=== PATIENT | female | born 1995 | race Hispanic/Latino ===

== ENCOUNTER 2018-03-08 15:15 | Outpatient (CLI) | payer SELFPAY ==
[2018-03-08 15:48] VITALS: BMI 34.9
[2018-03-08 15:52] LABS: Color, Urine Yellow (Yellow); Glucose, Dipstick Normal (Normal); Ketone-Dipstick Negative (Negative); Leukocyte Esterase-Dipstick Negative /ul (Negative); Nitrite-Dipstick Negative (Negative); Occult Blood-Urine 10 /ul (Negative); Protein-Dipstick Negative (Negative); Specific Gravity, Urine 1.025 (1.002-1.030); Urine Bilirubin Dipstick Negative (Negative); Urine Clarity Sl. Cloudy (Clear); Urine Urobilinogen Normal (Normal)
[2018-03-08 16:01] LABS: Bacteria 1+ /hpf (None Seen); Fine Granular Cast- Urine 0 SEEN /lpf (0-5); Hyaline Cast 0-5 SEEN /lpf (0-5); Mucous, Urine RARE /hpf (<or=2+)
[2018-03-08 16:02] LABS: Red Blood Cells-Urine 0-5 SEEN /hpf (0-5); Squamous Epithelial Cells - UA 0-5 SEEN /hpf (5-10); White Blood Cells 0-5 SEEN /hpf (0-5)
[2018-03-08 16:17] LABS: ROM Internal Control Test YES-OK TO RESULT pt. (Internal QC); ROM Patient Test Negative (Negative)
--- NOTE | 2018-03-08 17:32 | OB.TRI.NOTE ---
History of Present Illness Date of Service: 03/08/18 Was patient seen by the physician?: Yes Reason For Visit: R/O LABOR Date of Service: 03/08/18 Final CANELO: 04/14/18 Final CANELO Source: US <20 weeks Gestational age: 34 Weeks and 5 Days History of Present Illness: Patient presents reporting increased vaginal discharge, possible PPROM and intermittent lower abdominal cramping. Patient is German-speaking but understands some Tajik. Per conversation with this provider in German, patient has been having pain and burning sensation with urination. Patient reports also bilateral flank and lower back pain. Generalized pain noted by patient over lower abdomen when it is palpated though no palpable ctx noted. Home Medications Medication Instructions Recorded Vits [Prenatabs FA] 1 tablet PO DAILY 07/20/15 Progesterone QWEEK 12/22/17 Cephalexin [Keflex] 250 mg PO Q6 #28 cap 03/08/18 Allergies No Known Allergies Allergy (Verified 03/08/18 15:50) - Pertinent Past Medical History Pertinent Past Medical History: Hx of PTB x 2 secondary to cervical incompetence, cerclage placed with first at 19 weeks and patient had 23 week PTB with subsequent demise. Next a cerclage was placed and patient had delivery at 32 weeks gestation. Hx of depression Physical Exam Vitals: See nursing note for vitals - VSS, afebrile Thin watery scant vaginal discharge with slight odor - BV, yeast, trich culture sent Urinalysis - + blood, +wbcs, +bacteria General: Alert, Oriented x3, No apparent distress Cardiovascular: Regular rate, Regular Rhythm Lungs: Clear to auscultation Abdomen: Soft, Non-Distended, No Hepato-splenomegaly, Gravid, Tender - suprapubic and flank area bilaterally, No hernias noted, Appropriate for Gestational Age Extremities:: No edema Estimated gestational size: Appropriate for gestational size Presentation: Cephalic Cervix Dilation (cm): 0 - cervix soft Station: -2 Effacement (%): 50 NST - FHR Rate Baby A Baseline: 130 Variability:: Moderate Accelerations:: 15 x 15 Decelerations:: None NST Reactive:: Yes, Appropriate for gestational age FHR Category:: Category I Uterine Activity:: Few contractions noted on tocometer, not palpable Impression/Plan 22 y/o @ 34.5 weeks, R/O PTL, Hx of PTB x 2, Presumptive UTI P: 1) Rx Keflex 250mg PO q 6 hours x 7 days 2) Await vaginal culture result - if negative discharge to home with f/u visit with [facility] this week (already scheduled for Saturday) 3) PTL precautions and C teaching reviewed Shena Bower CNM
[2018-03-08] MEDS: Cephalexin 250 MG Capsule PO (18:15)
== END 2018-03-08 18:30 | disposition home or self-care (01) ==
LOC: WPOUT 15:17 → WP 15:19
PROVIDERS: Visit Provider Advanced Practice Midwife
DX: O26.893 Other specified pregnancy related conditions, third trimester (principal); N89.8 Other specified noninflammatory disorders of vagina; Z3A.34 34 weeks gestation of pregnancy; R20.8 Other disturbances of skin sensation; R30.0 Dysuria; M54.5 Low back pain
CPT/HCPCS: 59025; 59050; 81001; 84112; 87210; 99218; G0378

== ENCOUNTER 2018-03-21 19:00 | Outpatient (CLI) | payer SELFPAY ==
[2018-03-21 20:38] VITALS: BMI 35.2
[2018-03-21 20:47] LABS: Mucous, Urine 0 SEEN /hpf (<or=2+); Red Blood Cells-Urine 0 SEEN /hpf (0-5)
[2018-03-21 20:50] LABS: Color, Urine Yellow (Yellow); Glucose, Dipstick Normal (Normal); Ketone-Dipstick 5 mg/dl (Negative); Leukocyte Esterase-Dipstick 25 /ul (Negative); Nitrite-Dipstick Negative (Negative); Occult Blood-Urine 10 /ul (Negative); Protein-Dipstick Negative (Negative); Specific Gravity, Urine 1.025 (1.002-1.030); Urine Bilirubin Dipstick Negative (Negative); Urine Clarity Sl. Cloudy (Clear); Urine Urobilinogen Normal (Normal)
[2018-03-21 21:10] LABS: Bacteria 1+ /hpf (None Seen); Squamous Epithelial Cells - UA 0-5 SEEN /hpf (5-10); White Blood Cells 0-5 SEEN /hpf (0-5)
--- NOTE | 2018-03-21 22:57 | OB.TRI.HP_ITS ---
History of Present Illness Date of Service: 03/21/18 Was patient seen by the physician?: No Reason For Visit: R/O LABOR Date of Service: 03/21/18 Final CANELO: 04/14/18 Final CANELO Source: US <20 weeks Gestational age: 36 Weeks and 4 Days History of Present Illness: Presented to L&D with abdominal pain and contractions. Cerclage out on 03/18/18 and cervix was 1cm per patient. Patient denies any vaginal bleeding, leakage of fluid or time able contractions. Just intermittent abdominal pain. Home Medications Medication Instructions Recorded Vits [Prenatabs FA] 1 tablet PO DAILY 07/20/15 Progesterone QWEEK 12/22/17 Allergies No Known Allergies Allergy (Verified 03/21/18 20:39) Physical Exam Cervix Dilation (cm): 1 Station: -3 Effacement (%): 20 NST - FHR Rate Baby A Variability:: Moderate Accelerations:: 15 x 15 Decelerations:: Variable NST Reactive:: Yes FHR Category:: Category II Uterine Activity:: Irregular irritability Impression/Plan A: False Labor P: 1) PO hydrate 2) U/A negative 3) D/C home Ana Schumacher, MSN, POST TRONIC MACHINE OPERATOR, CNM
== END 2018-03-21 22:15 | disposition home or self-care (01) ==
LOC: WPOUT 19:41 → WP 19:43
PROVIDERS: Visit Provider Obstetrics & Gynecology
DX: O47.03 False labor before 37 completed weeks of gestation, third trimester (principal); Z3A.36 36 weeks gestation of pregnancy
CPT/HCPCS: 59025; 59050; 81001; 99218; G0378

== ENCOUNTER 2018-03-25 19:44 | Outpatient (CLI) | payer SELFPAY ==
[2018-03-25 20:23] VITALS: BMI 35.9
--- NOTE | 2018-03-26 05:15 | OB.TRI.NOTE ---
History of Present Illness Date of Service: 03/25/18 Was patient seen by the physician?: No Reason For Visit: R/O LABOR Date of Service: 03/25/18 Final CANELO: 04/14/18 Final CANELO Source: US <20 weeks Gestational age: 37 Weeks and 2 Days Home Medications Medication Instructions Recorded Vits [Prenatabs FA] 1 tablet PO DAILY 07/20/15 Allergies No Known Allergies Allergy (Verified 03/21/18 20:39) NST - FHR Rate Baby A Baseline: 130 Variability:: Moderate Accelerations:: 15 x 15 Decelerations:: None NST Reactive:: Yes FHR Category:: Category I Uterine Activity:: irreg ctxs
== END 2018-03-25 22:10 | disposition home or self-care (01) ==
LOC: WPOUT 20:17 → WP 20:18
PROVIDERS: Visit Provider Obstetrics & Gynecology
DX: O47.1 False labor at or after 37 completed weeks of gestation (principal); Z3A.37 37 weeks gestation of pregnancy
CPT/HCPCS: 59025; 59050; 99218; G0378

== ENCOUNTER 2018-03-27 18:00 | Outpatient (CLI) | payer SELFPAY ==
[2018-03-27 23:32] VITALS: BMI 35.7
--- NOTE | 2018-04-05 03:01 | OB.TRI.NOTE ---
History of Present Illness Date of Service: 03/27/18 Was patient seen by the physician?: No Reason For Visit: R/O LABOR Gestational age: 37.5 Home Medications Medication Instructions Recorded Vits [Prenatabs FA] 1 tablet PO DAILY 07/20/15 Allergies No Known Allergies Allergy (Verified 04/04/18 20:32) NST - FHR Rate Baby A Baseline: 135 Variability:: Moderate Decelerations:: Variable - possible prolonged decel NST Reactive:: Yes Uterine Activity:: irrregular Impression/Plan Reactive NST but possible prolonged decels Patient called back for additional monitoring
== END 2018-03-27 20:55 | disposition home or self-care (01) ==
LOC: WPOUT 18:33 → WP 18:34
PROVIDERS: Visit Provider Obstetrics & Gynecology
DX: O76 Abnormality in fetal heart rate and rhythm complicating labor and delivery (principal); Z3A.37 37 weeks gestation of pregnancy
CPT/HCPCS: 59025; 59050; 99218; G0378

== ENCOUNTER 2018-03-28 18:00 | Outpatient (CLI) | payer SELFPAY ==
--- NOTE | 2018-03-28 18:05 | US_ITS ---
STUDY: OBSTETRICAL ULTRASOUND - BIOPHYSICAL PROFILE REASON FOR EXAM: Female, 22 years old. BPP AND GROWTH LMP: PRIOR ULTRASOUND: US Uterus Oct 14 2017 6:51pm TECHNIQUE: Transabdominal ultrasound evaluation was performed. FINDINGS: There is a single intrauterine fetus. The fetus is in a cephalic presentation. There is demonstrated cardiac activity with a heart rate of 153 bpm. There is a normal amniotic fluid volume. The largest amniotic fluid pocket measures 5.7 cm. The amniotic fluid index (LUTHER) is 9.51 cm. The placenta is posterior in location and is not low lying. There are Grade 3 placental changes. Age by LMP: 37 weeks, 4 days. CANELO by LMP: 5.14.18. age by current US: 37 weeks, 0 days. CANELO by current US: 5.18.18. Gender: Female BIOPHYSICAL PROFILE: Breathing Movements (FBM): 2 Gross Body Movements (GBM): 2 Tone (FT): 2 Amniotic Fluid Volume (AFV): 2 TOTAL SCORE: 8 / 8 US/Biophysical Profile IMPRESSION: Normal biophysical profile of 8/8. There is a single live intrauterine with a heart rate of 153 bpm. age by current US: 37 weeks, 0 days. CANELO by current US: 5.18.18. Electronically Signed: Keegan Correa MD at 19:55 EDT , Service support ,
[2018-03-28 19:14] LABS: Mucous, Urine 0 SEEN /hpf (<or=2+)
[2018-03-28 19:26] LABS: Color, Urine Yellow (Yellow); Glucose, Dipstick Normal (Normal); Ketone-Dipstick Negative (Negative); Leukocyte Esterase-Dipstick Negative /ul (Negative); Nitrite-Dipstick Negative (Negative); Occult Blood-Urine 10 /ul (Negative); Protein-Dipstick Negative (Negative); Specific Gravity, Urine 1.025 (1.002-1.030); Urine Bilirubin Dipstick Negative (Negative); Urine Clarity Sl. Cloudy (Clear); Urine Urobilinogen Normal (Normal)
[2018-03-28 19:38] LABS: White Blood Cells 0-5 SEEN /hpf (0-5)
[2018-03-28 19:39] LABS: Bacteria 1+ /hpf (None Seen); Calcium Oxalate Crystals Ur 1+ /hpf (<or=2+); Red Blood Cells-Urine 0-5 SEEN /hpf (0-5); Squamous Epithelial Cells - UA 0-5 SEEN /hpf (5-10)
[2018-03-28 19:46] LABS: ROM Internal Control Test YES-OK TO RESULT pt. (Internal QC); ROM Patient Test Negative (Negative)
[2018-03-28 20:00] VITALS: BMI 35.4
--- NOTE | 2018-03-29 09:21 | OB.TRI.NOTE ---
History of Present Illness Date of Service: 03/28/18 Was patient seen by the physician?: No Reason For Visit: NST Final CANELO: 04/14/18 Final CANELO Source: US <20 weeks Gestational age: 37 Weeks and 5 Days History of Present Illness: Patient presents to labor and delivery due to being in triage last night and having what appeared to be decelerations on the external monitor. She presents today for reevaluation and biophysical profile. Home Medications Medication Instructions Recorded Vits [Prenatabs FA] 1 tablet PO DAILY 07/20/15 Allergies No Known Allergies Allergy (Verified 03/21/18 20:39) NST - FHR Rate Baby A Baseline: 130 then 115 Variability:: Moderate Accelerations:: 15 x 15 Decelerations:: Variable NST Reactive:: Yes FHR Category:: Category I - for > 20 min before d/c Uterine Activity:: no regular ctxs Impression/Plan 22-year-old 3 para 0201 female with decelerations who presented for biophysical profile and prolonged monitoring. There were a couple of intermittent small variables on the external monitoring. Overall the heart tones are category 1 for the majority of the monitoring time. Category 1 for greater than 20 minutes before discharge. She had a biophysical profile of 10 out of 10. Estimated weight was appropriate amniotic fluid volume was 9.5 cm. She was discharged home with routine instructions she is to follow-up in our office as scheduled or as needed. She is to do kick counts.
== END 2018-03-28 20:30 | disposition home or self-care (01) ==
LOC: WPOUT 18:03 → WP 18:04
PROVIDERS: Visit Provider Obstetrics & Gynecology
DX: O76 Abnormality in fetal heart rate and rhythm complicating labor and delivery (principal); Z3A.37 37 weeks gestation of pregnancy
CPT/HCPCS: 59025; 59050; 76818; 81001; 84112; 99218; G0378

== ENCOUNTER 2018-04-01 17:40 | Outpatient (CLI) | payer SELFPAY ==
[2018-04-01 18:04] VITALS: BMI 35.6
--- NOTE | 2018-04-03 13:37 | OB.TRI.NOTE ---
History of Present Illness Date of Service: 04/03/18 Was patient seen by the physician?: No Reason For Visit: contractions Date of Service: 04/01/18 Final CANELO: 04/14/18 Gestational age: 38 1 Home Medications Medication Instructions Recorded Vits [Prenatabs FA] 1 tablet PO DAILY 07/20/15 Allergies No Known Allergies Allergy (Verified 03/21/18 20:39) NST - FHR Rate Baby A Baseline: 130 bpm Variability:: Moderate Accelerations:: 15 x 15 Decelerations:: None NST Reactive:: Yes FHR Category:: Category I Uterine Activity:: irritability Impression/Plan 22-year-old high-risk multigravida 22-year-old high-risk multigravida with false labor 3 previous delivery
== END 2018-04-01 19:20 | disposition home or self-care (01) ==
LOC: WPOUT 17:50 → WP 17:51
PROVIDERS: Visit Provider Obstetrics & Gynecology
DX: O47.1 False labor at or after 37 completed weeks of gestation (principal); Z3A.38 38 weeks gestation of pregnancy; O09.213 Supervision of pregnancy with history of pre-term labor, third trimester
CPT/HCPCS: 59025; 59050; 99218; G0378

== ENCOUNTER 2018-04-04 20:04 | Inpatient (IN) | payer SELFPAY ==
[2018-04-04] MEDS: Lactated Ringers 1,000 ML 50 ML IV ×2 (20:25→21:29)
[2018-04-04 20:31] VITALS: BMI 35.4
--- NOTE | 2018-04-04 20:32 | NURSING ---
pt too painful to step on scale on arrival per engineering secretary
[2018-04-04 20:58] LABS: Hematocrit 36.1 % (37-47); Hemoglobin 11.9 g/dl (12.0-15.0); Mean Corpuscular Hgb 28.1 pg (27.0-32.0); Mean Corpuscular Volume 85.3 fL (81-99); Mean Platelet Vol. 9.6 fl (6.2-12.0); Platelet Count 315 K/mm3 (150-450); RBC Distribution Width CV 13.7 % (11.6-14.6); RBC Distribution Width SD 42.5 fl (35.1-43.9); Red Blood Count 4.23 M/mm3 (4.2-5.4); White Blood Count 9.9 K/mm3 (4.4-11.0)
[2018-04-04 21:05] LABS: Scan Indicated on CBC? Y/N NO
[2018-04-05] MEDS: Lactated Ringers 1,000 ML 50 ML IV (03:07)
--- NOTE | 2018-04-05 03:09 | PCM.HP.OB ---
History Date of Admission: 04/04/18 Final CANELO: 04/14/18 Gestational age: 38 Weeks and 5 Days History of this : GBS negative Cerclage placement - h/o cervical incompetence Progesterone injections Pertinent Past Medical History: H/o PP depression Allergies No Known Allergies Allergy (Verified 04/04/18 20:32) Current Medications Acetaminophen (Tylenol) 325 - 650 mg PO Q4H PRN PRN PRN Reason: PAIN OR FEVER >100.4F Al Hydroxide/Mg Hydroxide (Mylanta Ii) 15 - 30 ml PO Q4H PRN PRN PRN Reason: INDIGESTION Citric Acid/Sodium Citrate (Bicitra) 30 ml PO UD PRN Lactated Ringer's () 1,000 mls @ 50 mls/hr IV .Q20H [facility] Last Admin: 04/05/18 03:07 Dose: 50 mls/hr Nalbuphine HCl (Nubain) 5 - 10 mg IV Q3H PRN PRN PRN Reason: PAIN (4-10/10) Ondansetron HCl (Zofran) 4 mg IV Q8H PRN PRN PRN Reason: NAUSEA Promethazine HCl (Phenergan) 6.25 - 12.5 mg IV Q4H PRN PRN; Protocol PRN Reason: IF NAUSEA PERSISTS Sodium Chloride () 5 - 15 ml IV UD [facility] Last Admin: 04/04/18 21:18 Dose: Not Given Smoking Status: Never smoker Alcohol: None Drug Use: none Number of Fetus(es): 1 Physical Exam General: Alert, Oriented x3 Abdomen: Soft, Non Tender, Non-Distended, Gravid Estimated gestational size: Appropriate for gestational size Presentation: Cephalic Cervix Dilation (cm): 9 Station: 0 Effacement (%): 100 Assessment/Plan 22yo female in labor AROM clear amniotic fluid GBS negative Pain - comfortable with epidural EFW less than 4500g - patient with adequate pelvis Routine care
--- NOTE | 2018-04-05 03:16 | HP.PCM_ITS ---
History Date of Admission: 04/04/18 Final CANELO: 04/14/18 Gestational age: 38 Weeks and 5 Days History of this : GBS negative Cerclage placement - h/o cervical incompetence Progesterone injections Pertinent Past Medical History: H/o PP depression Allergies No Known Allergies Allergy (Verified 04/04/18 20:32) Current Medications Acetaminophen (Tylenol) 325 - 650 mg PO Q4H PRN PRN PRN Reason: PAIN OR FEVER >100.4F Al Hydroxide/Mg Hydroxide (Mylanta Ii) 15 - 30 ml PO Q4H PRN PRN PRN Reason: INDIGESTION Citric Acid/Sodium Citrate (Bicitra) 30 ml PO UD PRN Lactated Ringer's () 1,000 mls @ 50 mls/hr IV .Q20H [facility] Last Admin: 04/05/18 03:07 Dose: 50 mls/hr Nalbuphine HCl (Nubain) 5 - 10 mg IV Q3H PRN PRN PRN Reason: PAIN (4-10/10) Ondansetron HCl (Zofran) 4 mg IV Q8H PRN PRN PRN Reason: NAUSEA Promethazine HCl (Phenergan) 6.25 - 12.5 mg IV Q4H PRN PRN; Protocol PRN Reason: IF NAUSEA PERSISTS Sodium Chloride () 5 - 15 ml IV UD [facility] Last Admin: 04/04/18 21:18 Dose: Not Given Smoking Status: Never smoker Alcohol: None Drug Use: none Number of Fetus(es): 1 Physical Exam General: Alert, Oriented x3 Abdomen: Soft, Non Tender, Non-Distended, Gravid Estimated gestational size: Appropriate for gestational size Presentation: Cephalic Cervix Dilation (cm): 9 Station: 0 Effacement (%): 100 Assessment/Plan 22yo female in labor AROM clear amniotic fluid GBS negative Pain - comfortable with epidural EFW less than 4500g - patient with adequate pelvis Routine care
[2018-04-05] MEDS: Oxytocin 30 units/NS 500 ml 30 UNITS/500 ML IV.SOLN 334 UNITS IV (03:48)
--- NOTE | 2018-04-05 03:53 | PCM.OB.VAG ---
Vaginal Delivery Maternal Presentation: Active Labor Amniotic Membrane Rupture Type: Artificial Amniotic Fluid Description: Clear - with terminal meconium Final CANELO: 04/14/18 Gestational age: 38 Weeks and 5 Days Date of Procedure: 04/05/18 Pre-Operative Diagnosis: Labor Post-Operative Diagnosis: Labor Surgery/ Procedure Performed: Spontaneous Vaginal Delivery Type of Anesthesia: Epidural Description of Procedure: patient prepped & draped when c/c/+2. she pushed & delivered head. gentle traction placed on head to allow delivery of anterior & posterior shoulders. no excess traction placed on head. body delivered & placed on maternal abdomen. 3vc clamped & cut in delayed fashion. placenta delivered with gentle traction & good uterine tone obtained. Presentation: RAYSHAWN Placental Delivery Description: Expressed Placenta Disposition: [facility] Cord Vessel Description: 3 Vessels Cord Entanglement: None Estimated Blood Loss: 200ml A gender: Female (1 minute): 9 (5 minute): 9 Episiotomy Description: None Laceration: None Medications given after delivery: IV Pitocin Complications: None
[2018-04-05] MEDS: Oxytocin 30 units/NS 500 ml 30 UNITS/500 ML IV.SOLN 167 UNITS IV (04:15)
[2018-04-05 06:00] VITALS: BP 109/55; PULSE 97; RESP 17; TEMP 37.1
[2018-04-05 08:15] VITALS: BP 105/56; PULSE 104; RESP 18; TEMP 36.3
--- NOTE | 2018-04-05 10:37 | CASEMGMT ---
SW received referral for resources for patient who is Polish speaking only. This SW does not have any resources, but did talk with WP PARVEEN who has some resources. She said if it is okay she can mail patient the resources on Saturday if patient is not here on Saturday. PARVEEN spoke with RN who felt this would be fine. SW also notified extension service specialist in charge of plan. Plan: WP SAINI to follow up on Saturday if patient is here and if not she will mail resources. Mindi SOLANO MSW
[2018-04-05] MEDS: Prenatal Vits Tablet 1 TABLET PO (11:06)
[2018-04-05 12:00] VITALS: BP 122/81; PULSE 109; RESP 18; TEMP 36.6
[2018-04-05] MEDS: Ibuprofen 600 MG Tablet PO ×2 (13:26→19:54)
--- NOTE | 2018-04-05 17:03 | NURSING ---
Print Production Manager Casey, #[id number] used for bath demo and teaching. Pt verbalized understanding. [place] [employer] book given to pt with instructions to read.
[2018-04-05 17:06] VITALS: BP 115/67; PULSE 91; RESP 16; TEMP 36.4
[2018-04-05 20:00] VITALS: BP 109/61; PULSE 98; RESP 16; TEMP 37.4
[2018-04-06 02:00] VITALS: BP 93/44; PULSE 74; RESP 16; TEMP 37.2
[2018-04-06] MEDS: Hydrocortisone 2.5% Crm 1 APPLIC TOPICAL (04:20)
[2018-04-06] MEDS: Ibuprofen 600 MG Tablet PO ×2 (04:21→14:06)
--- NOTE | 2018-04-06 04:36 | PN.OBGYN_ITS ---
Subjective: Pain controlled - Physical Exam General: Alert, Oriented x3 Abdomen: Soft - ff mid & below umb, Non Tender, Non-Distended Extremities: No Calf Tenderness Vital Signs Temp Pulse Resp BP 98.9 F 74 16 93/44 L 04/06/18 02:00 04/06/18 02:00 04/06/18 02:00 04/06/18 02:00 Oxygen Delivery Method Room Air Weight: 194 lb Body Mass Index (BMI) 35.4 Intake and Output for Last 24 Hours 04/04/18 04/05/18 04/06/18 23:59 23:59 23:59 Output Total 700 / 700 Balance -700 / -700 Medical Necessity - Tobacco Use Smoking Status: Never smoker Assessment/Plan 22yo female PPD#1 Routine care control - will give depo prior to discharge & then insert mirena IUD at 6- 10 weeks PP
--- NOTE | 2018-04-06 04:38 | PCM.DCVAG ---
Discharge Diet: No Restrictions Discharge Activity: May Drive, May Shower May resume sexual activity in: 6 weeks Weight Bearing Status: Weight bearing as tolerated Additional Instructions: If you experience any of the following, contact your healthcare provider. Bleeding that soaks a pad every hour for 2 hours Fever 100.4 or higher Unrelieved incision or abdominal pain Swelling, redness, discharge or bleeding from your incision or episiotomy site Your incision begins to separate Problems urinating (including inability to urinate or burning while urinating). Visual changes Severe headache Flu-like symptoms Pain or redness in one of both of your breasts Pain, warmth, tenderness or swelling in your legs, especially the calf area Frequent nausea and vomiting Symptoms of depression or anxiety If you experience any of the following, call 911 or go to the nearest Emergency Room. Chest pain Problems breathing Seizure activity Partial or complete paralysis of a body part, slurred speech, weakness or drooping of the face, or a sudden inability to walk or hold your balance Allergies/Adverse Reactions: Allergies No Known Allergies Allergy (Verified 04/04/18 20:32) Medications to take at Discharge Vits [Prenatabs FA ] 1 tablet PO DAILY 07/20/15 Primary Care Physician: Care Physician,No Primary [Primary Care Provider] -
--- NOTE | 2018-04-06 04:39 | DCINST_ITS ---
Discharge Diet: No Restrictions Discharge Activity: May Drive, May Shower May resume sexual activity in: 6 weeks Weight Bearing Status: Weight bearing as tolerated Additional Instructions: If you experience any of the following, contact your healthcare provider. * Bleeding that soaks a pad every hour for 2 hours * Fever 100.4 or higher * Unrelieved incision or abdominal pain * Swelling, redness, discharge or bleeding from your incision or episiotomy site * Your incision begins to separate * Problems urinating (including inability to urinate or burning while urinating) . * Visual changes * Severe headache * Flu-like symptoms * Pain or redness in one of both of your breasts * Pain, warmth, tenderness or swelling in your legs, especially the calf area * Frequent nausea and vomiting * Symptoms of depression or anxiety If you experience any of the following, call 911 or go to the nearest Emergency Room. * Chest pain * Problems breathing * Seizure activity * Partial or complete paralysis of a body part, slurred speech, weakness or drooping of the face, or a sudden inability to walk or hold your balance Allergies/Adverse Reactions: Allergies No Known Allergies Allergy (Verified 04/04/18 20:32) Medications to take at Discharge Vits [Prenatabs FA ] 1 tablet PO DAILY 07/20/15 Primary Care Physician: Care Physician,No Primary [Primary Care Provider] -
[2018-04-06 08:00] VITALS: BP 109/65; PULSE 85; RESP 16; TEMP 36.3
[2018-04-06] MEDS: Prenatal Vits Tablet 1 TABLET PO (09:58)
[2018-04-06] MEDS: Senna/Docusate Sodium 1 Tablet PO (09:58)
[2018-04-06 14:00] VITALS: BP 108/75; PULSE 91; RESP 16; TEMP 36.3
--- NOTE | 2018-04-06 14:53 | NURSING ---
Written teaching info on and care printed from mike and given to pt.
[2018-04-06 20:26] VITALS: BP 124/78; PULSE 78; RESP 18; TEMP 36.9
[2018-04-07 01:43] VITALS: BP 124/80; PULSE 72; RESP 16; TEMP 36.7
[2018-04-07 07:46] VITALS: BP 109/72; PULSE 90; RESP 16; TEMP 36.5
--- NOTE | 2018-04-07 08:58 | PCM.PN.OB ---
Subjective: Doing well per patient and nursing staff. Denies any headaches, visual changes, chest pain, shortness of breath, increased vaginal bleeding or clots, no leg pain. Ambulating and taking PO without difficulty. Voiding and passing flatus. Planning D/C home today. Jhonny Ge here for interpreting. Patient declines interpretive telecommunication services today. - Physical Exam General: Alert, Oriented x3, Cooperative HEENT: Atraumatic, PERRLA, EOMI, Normocephalic Lungs: Clear to auscultation, Normal air movement, No rhonchi, No wheeze Cardiovascular: Regular rate, Regular Rhythm, No murmurs Abdomen: Bowel Sounds Present, Soft, Non Tender Extremities: No edema, - - Mariya's negaive BLE Psych/Mental Status: Normal Affect, Appropriate Vital Signs Temp Pulse Resp BP 97.7 F L 90 16 109/72 04/07/18 07:46 04/07/18 07:46 04/07/18 07:46 04/07/18 07:46 Oxygen Delivery Method Room Air Weight: 194 lb Body Mass Index (BMI) 35.4 Intake and Output for Last 24 Hours 04/05/18 04/06/18 04/07/18 23:59 23:59 23:59 Output Total 700 / 700 Balance -700 / -700 Medical Necessity - Tobacco Use Smoking Status: Never smoker Assessment/Plan A: PPD #2 P: 1) D/C instructions given, planning D/C home today 2) Patient would like Depo injection prior to discharge. Reviewed risks, benefits, MOA, and injection. Mirena insertion at visit. 3) Professional Engineer to see patient prior to discharge 4) D/C home today.
[2018-04-07] MEDS: Prenatal Vits Tablet 1 TABLET PO (09:49)
[2018-04-07] MEDS: MedroxyPROGESTERone 150 MG/ML Syringe IM (09:49)
[2018-04-07] MEDS: Ibuprofen 600 MG Tablet PO (10:04)
--- NOTE | 2018-04-07 12:30 | CASEMGMT ---
Social Work Note - Labor and Delivery Unit Social Work Assessment completed. Refer to documentation below for further details. Date of Referral: 04/05/2018 Time of Referral: 0501 Referred By: Dr. Aguilar Date of Intervention: 04/07/2018 Time of Intervention: 1200 Reason for Referral: Libyan speaking as primary language, interested in WIC and other resources History obtained from: medical record and patient/mother of baby (MOB) Natasha Arizmendi. Used [facility] auto refinisher services for conversation with MOB. Fitness Floor Attendant Sujey, ID# [id number] Household composition: MOB and son Agustín live with MOBs mother, and MOBs sisters ages 19 and 4. MOB reports plan to take Ros Bean to this home. MOB reports home situation is safe and adequate. Patient's parent/guardian status: LANETTE is 20 years old single female born in [place], moving to the [facility] at the age of 18. Father of baby (FOB), age 24 and born in [facility], is Santino Newtono Servando. FOB is the father to all of MOBs children. FOB is currently involved. Children: Nikolay, born [birth year]15 at 23 weeks, at ; Agustín born 07[birth year]-16, and Ros Waller boron 5-18. Medical History: LANETTE is G3, P2 to 3 after delivering Ros. care good, starting at 9 weeks gestation. LANETTE did have a cerclage for part of this . Infant born weighing 6 pounds 12 ounces, with Apgars 9 and 9. Educational Status: MMOB reports complete schooling in [place], equivalent to [employer] or the first year of high school in the [place]. Primary language is Libyan, written and spoken. MOB reports to understand some spoken Afghan. Financial Status: MOB does not currently work. MOB reports is support by MOBs mothers work on the [employer] (where the home is actually located) and then FOB gives about 200 a month baby supplies. nfant Supplies: MOB reports to have a crib, car seat, clothing, some diapers, wipes, and plans to breast feed. Childcare/Caregiver(s): MOB plans to be primary caregiver. Transportation: MOB reports to rely on a maternal aunt for assistance, but reports the aunt charges large amounts of money (between 50-100 dollars) for rides. MOB reports to use the aunt when an Afghan auto refinisher is needed. MOB reports to have a family friend with a license and car, but this person mostly speaks Libyan. The Libyan speaking friend does not charge for rides. Programs/Agencies Involved: MOB reports to have WIC for Agustín, but needs for the new baby. MOB reports lost Medicaid benefits due to MOBs aunt helping MOB, sending all paperwork to the aunts home and the aunt not conveying to MOB what needs to be done for JFS. MOB denies involvement with any other agency, but reports open to resources available. Children Services/Legal Issues: MOB denies past or present legal or children services involvement. Behavioral Health Issues: MOB reports history of depression after son Nikolay . MOB reports did not seek help as was afraid, so just dealt with this on own. MOB denies that has ever thought of suicide as an option; no current thoughts, plans or intent to self-harm or harm others. MOB reports to have worry about children, and this worry has increased since loss of first child. MOB denies any use of alcohol or drugs. MOB denies tobacco use. No drug screens noted in care record or at delivery. Family/Social Stressors: LANETTE is a single mother, although FOB is involved and MOB reports supportive (MOB denies any form of abuse in relationship). care record indicated there was some stress this , with MOB worrying about FOBs faithfulness, though at time of assessment MOB denies any current stressors. MOB and FOB are both primarily Libyan speaking, so this is a barrier to accessing service. Limited support system in the form of Afghan speaking supports. Limited finances, though MOB reports FOB helps as does MOBs mother and sister who works. Support Systems: MOB reports her mother, 19 year old sister, and FOB are good supports to MOB. Depression/Shaken Baby/Safe Sleeping: MOB educated to safe sleeping, importance of setting baby down if feeling overwhelmed or frustrated, and depression risk. Educated MOB to risk for depression, as well as importance of seeking out help and support, attempting to normalize for MOB that this is not a shameful thing or something to hide. Emotional support offered to MOB. ASSESSMENT: MOB attentive to baby during social work visit, holding baby, smiling at and gazing at baby. MOB gentle in care of baby. MOB cried during assessment, when relating stressors, and also when MOB found out that baby needed to go to [facility] for failed hearing screen. MOB voiced to be so worried for her baby, that wants to make sure the baby is seen by the doctor but does not have insurance and does not understand why the insurance exactly lapsed in the first place. MOB shared that recently had to use the [facility] ED for older son, as could not afford the copays at the doctor's office due to loss of insurance. MOB talked about limited support from Afghan speaking aunt who at times serves as an auto refinisher for MOB, and how this person charges large amounts of money for rides. MOB reports that MOB's other who is sister to the aunt is getting frustrated with the cost of rides. MOB appearing receptive to social work visit, talking privately with social security benefits interviewer (as there were visitors present when social security benefits interviewer arrived, including the aunt who appeared irritated by tense facial features). MOB held normal eye contact, smiled at appropriate times, and was talkative. MOB receptive to resources and support offered. MOB voicing thanks for assistance social security benefits interviewer offering today. PLAN: MOB and baby to home today with family support. Social work to continue to assist today in providing resources and support before home going. -CORKY Lilly, COW RIDER
--- NOTE | 2018-04-07 13:30 | CASEMGMT ---
Social Work Note Labor and Delivery Unit Reason for visit: Follow up to assessment, provision of resources and assistance in accessing services Used [facility] phytopathologist services during meeting with MOB, combination of Sujey, ID#[id number] and Josue ID# [id number] 1. Assisted MOB with arranging hearing screening appointment in [place], educating MOB that needs to bring Medicaid card or pay 400 dollars for visit; educated that appointment can be rescheduled if Medicaid card is not sorted out by the appointment date. Appointment set for 04-22-18 at 1230 2. Assisted MOB in calling the [facility] Medicaid line. MOB able to attain Medicaid case number for son Agustín. Case number is [id number] 3. Assisted MOB in calling local [facility] office, to determine when MOB can be seen and what needs to be brought for baby to be added to [facility] case. MOB expressed understanding of what licensed master social worker explained needs to be done. MOB states that can get the family friend to help tomorrow, to get to walk in hours, where there will be filipino interpretation services available. 4. Assisted MOB in calling the [facility] phone line to apply for Medicaid online. Educated MOB as to reason why the medical card was discontinued in the first place. During phone conversation MOB had it noted in the [facility] record to MOBs correct address and that all correspondence needed to be in Israeli. MOB had previously voiced frustration that MOBs aunt was not including MOB in what needed to be done and MOB felt the aunt was withholding information from MOB. Note, prior to completion of phone application, all that had to be done was for MOB to give phone consent for an electronic signature. At this time hospital phone system stopped working and call disconnected. This call had been at least 40 minutes in length at this point. MOB voiced that unable to wait any longer, as it has been hours since licensed master social worker started to work with MOB today, and MOB could not make the ride wait any longer. boom worker educated MOB that next call should be quick, but MOB chose to leave. MOB voiced intent to go to local [facility] to finish application, likely on Saturday when MOBs aunt brings MOB to [facility] for pediatric follow up. 5. Provided MOB list of resources for [facility], writing in both Gabonese and Israeli, so that MOB and MOBs sister (who is 19 and reads Gabonese) can understand what is written. Provided [facility] information. depression information in Israeli, WIC applications in Israeli, Medicaid application in Israeli information on shaken baby in Israeli. MOB reports to be able to read and understand the Israeli language. Verbally educated there is transportation assistance through [employer] as well as can get help from insurance once insurance is approved again. Verbally reviewed options for assistance with diapers if needed. 6. Verified MOBs current address as [address] [place], [place]; phone is [phone]. No other services requested or indicted. MOB voiced thanks for time given today, for listening, and for resources offered. MOB and baby discharging home today. Resources given and reports to have needed supplies for baby at this time. -CRISTIANO Lilly, DRAW PRESS OPERATOR
--- NOTE | 2018-04-07 14:24 | NURSING ---
1045 pt requesting discharge, states her ride is here; PARVEEN Wilson informed that pr. is ready for discharge. Maureen visited with her until 1330. Pt walked to car per her request.
--- NOTE | 2018-04-10 09:55 | CASEMGMT ---
Social Work Note Labor and Delivery Unit [employer] referral made via the [facility]'s secure web based system. -CRISTIANO Lilly, BYPRODUCTS OPERATOR
== END 2018-04-07 13:45 | disposition home or self-care (01) | DRG 775 ==
PROVIDERS: Admitting Provider Obstetrics & Gynecology; Visit Provider Obstetrics & Gynecology
DX: O77.0 Labor and delivery complicated by meconium in amniotic fluid (principal); Z37.0 Single live birth; Z3A.38 38 weeks gestation of pregnancy
CPT/HCPCS: 59025; 59050; 85027; 86850; 86900; 99218; J7120; G0378

== ENCOUNTER 2023-10-17 08:12 | Emergency (ER) | payer OTHER, SELFPAY ==
[2023-10-17 08:14] VITALS: BP 132/88; PULSE 105; RESP 20; TEMP 37.2; O2SAT 99; BMI 35.9
--- NOTE | 2023-10-17 08:22 | EX.ED.DYSGE1 ---
HPI History of Present Illness Chief Complaint: Fever Narrative Narrative: 28-year-old female who denies significant past medical history presents with 3 days of fever, sore throat, and left ear pain. She states that her tonsils are also white. She last took an antipyretic at 7 AM, approximately an hour and a half ago. She has pain that is worse with swallowing. She denies loss of hearing out of her left ear but presents mainly because of the sore throat and white tonsils. PFSH PFSH Home Medications vits,calcium no.78-iron fumarate-folic acid 29 mg-1 mg tablet (Prenatabs FA) 1 tab PO DAILY 07/20/15 [History Last Taken 04/04/18 09:00 one] amoxicillin 500 mg tablet 500 mg PO BID #20 tabs 10/17/23 [Rx Last Taken Unknown] Allergy/AdvReac Type Severity Reaction Status Date / Time No Known Allergies Allergy Verified 10/17/23 08:51 Social History Smoking Status: Never smoker ROS ROS ED ROS Narrative Constitutional: Positive fever, no chills. HEENT: Positive sore throat. No neck pain. No loss of vision. No rhinorrhea. Cardiovascular: No chest pain. No palpitations. No pedal edema. Respiratory: No cough, no shortness of breath. Abdominal: No abdominal pain. No nausea. No vomiting. Genitourinary: No dysuria. No hematuria. Musculoskeletal: No myalgias. No arthralgias. Neurologic: No headaches. No dizziness. No lightheadedness. Skin: No rash. No change in color. Psychiatric: No depression. No anxiety. EXAM Physical Exam Narrative Exam Narrative: Afebrile. Vital signs noted. HEENT: Normocephalic. Atraumatic. PERRL, EOMI. Neck soft and supple. No point tenderness or step off. No drooling or trismus. No meningismus. Airway patent. Positive cervical lymphadenopathy bilaterally. Positive exudative tonsillitis. Cardiovascular: Regular rate and rhythm with intermittent tachycardia. No murmurs, rubs, or gallops appreciated. Respiratory: No tachypnea. Lungs clear to auscultation bilaterally. Gastrointestinal: Abdomen soft, nontender, with normoactive bowel sounds. No rebound or guarding. Neurological: Awake. Alert. Nonfocal, nonlateralizing. Skin: No rash. Normal color. No pallor. Musculoskeletal: No pedal edema. Full range of motion extremities. Const Vital Signs: 10/17/23 08:14 Temperature 98.9 F Temperature Source Temporal Pulse Rate 105 H Respiratory Rate 20 H Blood Pressure 132/88 H Blood Pressure Mean 102 Pulse Ox 99 Oxygen Delivery Method Room Air MDM MDM MDM Narrative Medical decision making narrative: Concern is for strep throat versus viral pharyngitis/exudative tonsillitis. Although she is meeting center criteria, I will obtain a strep swab. She is given 8 mg of Decadron as a one-time dose. Her pulse ox is 99% on room air, I do not feel that other laboratory/blood work is indicated nor do I feel that she requires CT imaging of her neck at this time. She is handling her secretions well. I reviewed her strep swab which is positive for acute Streptococcus. She was given her first dose of amoxicillin 1000 mg here, and a prescription written for 1000 mg daily versus 500 mg twice daily for the next 10 days. She was told to take all of the prescription medication/antibiotic in its entirety. Treatment will otherwise be symptomatic with [id number]-[id number] analgesics and plenty of oral fluids. I do not feel she requires observation. Return instructions to the emergency department were reviewed. Disposition is discharged home in stable condition. She was also referred to a primary care provider. History & Record Review Discussion w/independent historian: Patient Additional record(s) reviewed:: Prior ED visit Lab Data Attestation: I reviewed the patient's lab results. Discharge Plan Triage Chief Complaint: Fever ED Provider: Jesus Smith Dx/Rx/DC Orders Clinical Impression: Acute streptococcal pharyngitis Instructions: ED Pharyngitis, Strep (Confirmed) Prescriptions: New amoxicillin 500 mg tablet 500 mg PO BID Qty: 20 0RF No Action vit,[id number] [Prenatabs FA] 1 TABLET tablet 1 tab PO DAILY Primary Care Provider: Care Physician,No Primary Referrals: Refugio Flores MD [Med Staff - Active Staff] - 1 Week if not improving Care Physician,No Primary [Primary Care Provider] - Disposition Disposition: Home, Self Care
[2023-10-17] MEDS: dexAMETHasone 4 MG Tablet 8 MG PO (08:28)
[2023-10-17] MEDS: AMOXICILLIN 500 MG CAPSULE 1000 MG PO (09:14)
== END 2023-10-17 09:35 | disposition home or self-care (01) ==
PROVIDERS: Emergency Provider Emergency Medicine; Visit Provider Emergency Medicine
DX: J02.0 Streptococcal pharyngitis (principal)
CPT/HCPCS: 87880; 99283

== ENCOUNTER 2024-08-23 11:42 | Emergency (ER) | payer SELFPAY ==
[2024-08-23 11:43] VITALS: BP 131/100; PULSE 99; RESP 18; TEMP 37.1; O2SAT 97; BMI 36.5
--- NOTE | 2024-08-23 12:39 | CT_ITS ---
STUDY: CT Abdomen And Pelvis W/ Contrast Injection 08/23/2024 2:23 PM REASON FOR EXAM: Female, 29 years old. ABDOMINAL PAIN LLQ pain TECHNIQUE: Transaxial images were obtained without oral contrast, and IV 100mL Isovue-370 intravenous contrast. Individualized dose optimization techniques were used for this CT. COMPARISON: None FINDINGS: The visualized lung bases are unremarkable. The visualized portions of the heart are within normal limits. Unremarkable liver. There are surgical clips in the gallbladder fossa consistent with a prior cholecystectomy. Unremarkable spleen. Unremarkable pancreas. Unremarkable bilateral adrenal glands. No acute findings of the right kidney. No acute findings of the left kidney. Unremarkable visualized stomach. Unremarkable small intestine. Unremarkable colon. The appendix is visualized and appears unremarkable. There is a circular area of peripheral soft tissue density with a central region of low attenuation in the left lower quadrant. This can suggest possible fat necrosis versus epiploic appendagitis. There are no acute findings of the abdominal aorta. Unremarkable inferior vena cava. Subcentimeter mesenteric lymph nodes. Unremarkable urinary bladder. Normal visualized uterus. IUD in place. He is in good position. There is an umbilical hernia containing fat. Unremarkable osseous structures. CT/Abdomen/Pelvis W IV Cont ONLY IMPRESSION: (NOT LISTED IN ORDER OF SIGNIFICANCE) There is a circular area of peripheral soft tissue density with a central region of low attenuation in the left lower quadrant. This can suggest possible fat necrosis versus epiploic appendagitis. Other findings as above. Electronically Signed: Keegan Correa MD at 14:25 EDT ,
[2024-08-23] MEDS: Morphine 4 MG/ML Syringe IV (12:53)
[2024-08-23] MEDS: Ondansetron 4 MG/2 ML Vial IV (12:53)
[2024-08-23] MEDS: 0.9% Normal Saline (1000mL) 1,000 ML 999 ML IV (12:54)
[2024-08-23 13:07] LABS: Absolute Lymphocyte Count 2.77 X10^3/uL (0.83-4.51); Absolute Neutrophil Count 4.6 X10^3/uL (2.0-7.7); Basophil# 0.04 X10^3/uL; Basophil% 0.5 % (0-1); Eosinophil# 0.17 X10^3/uL; Eosinophils% 2.1 % (0-5); Hematocrit 38.9 % (37-47); Hemoglobin 12.7 g/dL (12.0-15.0); Lymphocyte # 2.77 X10^3/ul (0.83-4.51); Lymphocyte % 34.5 % (19-41); Mean Corp Hgb Conc 32.6 g/dL (32-36); Mean Corpuscular Hgb 28.1 pg (27.0-32.0); Mean Corpuscular Volume 86.1 fL (81-99); Mean Platelet Vol. 9.7 fl (6.2-12.0); Monocyte# 0.45 X10^3/uL; Monocyte% 5.6 % (0-10); NRBC Flagged by Analyzer 0 % (0-5); Neutrophil % 57.2 % (47-70); Platelet Count 327 K/mm3 (150-450); RBC Distribution Width CV 13.2 % (11.6-14.6); RBC Distribution Width SD 41.4 fl (35.1-43.9); Red Blood Count 4.52 M/mm3 (4.2-5.4)
[2024-08-23 13:23] LABS: ALB/GLOB Ratio 1.2 RATIO (0.9-2.4); AST(SGOT) 10 U/L (15-37); Alanine Aminotransfer ALT/SGPT 20 U/L (13-56); Albumin, Serum 3.7 g/dL (3.2-5.0); Alkaline Phosphatase 72 U/L (45-117); Anion Gap 3 (5-15); BUN 12 mg/dL (7-18); BUN/Creat Ratio 14.7 RATIO (10-20); Calcium,Total 9.1 mg/dL (8.5-10.1); Chloride 110 mmol/L (98-107); Creatinine, Serum 0.82 mg/dL (0.55-1.02); EST Glomerular Filtration Rate 89 mL/min (>60); Est Glom Filt Rate - Afr Amer 108 mL/min (>60); Estimated Creatinine Clearance 107.86 ml/min; Globulin 3.2 g/dL (2.2-4.2); Glucose 114 mg/dL (74-106); Lipase 31 U/L (13-75); Potassium 3.5 mmol/L (3.5-5.1); Protein, Total 6.9 g/dL (6.4-8.2); Sodium Level 142 mmol/L (136-145)
[2024-08-23 13:24] LABS: Mucous, Urine 0 SEEN /hpf (<or=2+); Red Blood Cells-Urine 0 SEEN /hpf (0-5); White Blood Cells 0 SEEN /hpf (0-5)
[2024-08-23 13:30] LABS: Color, Urine Yellow (Yellow); Glucose, Dipstick Normal (Normal); Ketone-Dipstick Negative (Negative); Leukocyte Esterase-Dipstick 25 /ul (Negative); Nitrite-Dipstick Negative (Negative); Occult Blood-Urine Negative /ul (Negative); Protein-Dipstick Negative (Negative); Specific Gravity, Urine 1.015 (1.002-1.030); Urine Bilirubin Dipstick Negative (Negative); Urine Clarity Clear (Clear); Urine Urobilinogen Normal (Normal)
--- NOTE | 2024-08-23 13:35 | EDS_ITS ---
HPI History of Present Illness Chief Complaint: Abd Pain Narrative Narrative: Patient is a 29-year-old female with no known significant past medical history who presented to the emergency department chief complaint of left-sided abdominal pain. Patient states that she developed abdominal pain for the past few days that is progressively worsened. Patient notes that she has an IUD and notes that in the past this infiltrated into her uterus had it removed and then ultimately was replaced several months later. She does not believe she is secondary to having this in place. Patient denies any history of kidney stones. States that her pain is currently 9 out of 10. Denies any recent sick contacts. Patient states that she had her gallbladder out in the past but denies any other previous abdominal surgeries. PFSH PFSH Home Medications ?Medication ?Instructions ?Recorded ?Last Taken ?Type vits,calcium no.78-iron 1 tab PO DAILY 07/20/15 04/04/18 09:00 History fumarate-folic acid 29 mg-1 mg one tablet (Prenatabs FA) amoxicillin 500 mg tablet 500 mg PO BID #20 tabs 10/17/23 Unknown Rx Allergy/AdvReac Type Severity Reaction Status Date / Time No Known Allergies Allergy Verified 08/23/24 11:42 Social History Smoking Status: Never smoker ROS ROS ED ROS Narrative Constitutional: Denies any fevers, chills, headaches, lightness, dizziness Cardiovascular: Denies chest pain or palpitations Respiratory: Denies cough or wheezing shortness of breath Abdomen: Complains of left-sided abdominal pain as noted above : Denies any painful urination, hematuria, polyuria, vaginal discharge Neurological: Denies numbness, weakness, tingling Musculoskeletal: Denies back pain Skin: Denies rashes or lesions EXAM Physical Exam Narrative Exam Narrative: General: Patient lying in bed did appear to be uncomfortable secondary to her left side abdominal pain Head: Atraumatic, normocephalic Eyes: PERRL bilateral, EOMI bilateral, no conjunctival injection noted Neck: Soft, supple, trachea midline Cardiovascular: Regular rate and rhythm no murmurs gallops rubs noted Respiratory: Clear to auscultation bilaterally no rales rhonchi or wheezes noted Abdomen: Soft, nondistended, tender to palpation the left lower quadrant no rebound or guarding on exam, bowel sounds present x 4 Extremities: +5/5 strength noted in the bilateral upper and lower extremities, no pedal edema on exam Neurological: Patient was following commands knew that she was at [facility] year is 2023 Skin: Warm, dry, intact Const Vital Signs: 08/23/24 11:43 08/23/24 13:42 08/23/24 15:00 Temperature 98.8 F Temperature Source Temporal Pulse Rate 99 70 Respiratory Rate 18 16 Blood Pressure 131/100 H 128/84 H 129/91 H Blood Pressure Mean 110 98 103 Pulse Ox 97 100 Oxygen Delivery Method Room Air Room Air MDM MDM MDM Narrative Medical decision making narrative: Patient is a 29-year-old female who presented to the emergency department chief complaint of left side abdominal pain. Patient will have a workup performed here on the differential diagnose includes but not limited to diverticulitis, ectopic , , UTI, urolithiasis. Once workup is obtained reviewed she will be reevaluated. Patient given IV fluids, morphine Zofran. Patient's CBC reviewed showed no evidence of leukocytosis white blood count normal at 8, hemoglobin stable 12.7, platelet count normal at 327. Patient sodium normal 142, potassium 3.5, creatinine normal at 0.82. Patient's AST and ALT were 10 and 20 respectively, lipase normal at 31. Patient's urinalysis did not reveal any evidence infection and test was negative. Patient's CT abdomen pelvis with IV contrast showed circular area of peripheral soft tissue density with a central region of low-attenuation in the left lower quadrant suggestive of possible fat necrosis versus epiploic appendagitis. Will add on a transvaginal ultrasound as she is still having pain however she states that her pain is improved with pain medication. Patient's case will be signed out to oncoming provider to follow-up on ultrasound if negative she will be discharged home with instructions to take NSAIDs for pain control and follow- up with her primary care physician outpatient setting. See oncoming providers note for ultimate disposition. Lab Data Labs: Laboratory Results - last 24 hr 08/23/24 08/23/24 12:55 13:16 WBC 8.0 RBC 4.52 Hgb 12.7 Hct 38.9 MCV 86.1 MCH 28.1 MCHC 32.6 RDW Std Deviation 41.4 RDW Coeff of Heide 13.2 Plt Count 327 MPV 9.7 Immature Gran % (Auto) 0.100 Neut % (Auto) 57.2 Lymph % (Auto) 34.5 [place] % (Auto) 5.6 Eos % (Auto) 2.1 Baso % (Auto) 0.5 Absolute Neuts (auto) 4.6 Absolute Lymphs (auto) 2.77 Nucleated RBC % 0 Sodium 142 Potassium 3.5 Chloride 110 H Carbon Dioxide 29.0 Anion Gap 3 L BUN 12 Creatinine 0.82 Estim Creat Clear Calc 107.86 Est GFR (MDRD) Af Amer 108 Est GFR (MDRD) Non-Af 89 BUN/Creatinine Ratio 14.7 Glucose 114 H Calcium 9.1 Total Bilirubin 0.40 AST 10 L ALT 20 Alkaline Phosphatase 72 Total Protein 6.9 Albumin 3.7 Globulin 3.2 Albumin/Globulin Ratio 1.2 Lipase 31 Urine Color Yellow Urine Clarity Clear Urine pH 7.0 Ur Specific [place] 1.015 Urine Protein Negative Urine Glucose (UA) Normal Urine Ketones Negative Urine Occult Blood Negative Urine Nitrite Negative Urine Bilirubin Negative Urine Urobilinogen Normal Ur Leukocyte Esterase 25 H Urine RBC 0 SEEN Urine WBC 0 SEEN Ur Squamous Epith Cells 0-5 SEEN Urine Bacteria RARE Urine Mucus 0 SEEN Urine Test Negative Radiography Diagnostic Testing: Clinical Impression(s) from Imaging Studies Abdomen/Pelvis CT 08/23/24 12:39 IMPRESSION: (NOT LISTED IN ORDER OF SIGNIFICANCE) There is a circular area of peripheral soft tissue density with a central region of low attenuation in the left lower quadrant. This can suggest possible fat necrosis versus epiploic appendagitis. Other findings as above. Electronically Signed: Keegan Correa MD at 14:25 EDT Reading Location ID and State: [facility] / [place] , Service support , Discharge Plan Triage Chief Complaint: Abd Pain ED Provider: Bertrand Humphreys Dx/Rx/DC Orders Clinical Impression: Abdominal pain Prescriptions: No Action vit,[id number] [Prenatabs FA] 1 TABLET tablet 1 tab PO DAILY amoxicillin 500 mg tablet 500 mg PO BID Qty: 20 0RF Primary Care Provider: Care Physician,No Primary Referrals: Care Physician,No Primary [Primary Care Provider] - Jose Davis MD [Med Staff - Social Services Aide] - Activity Restrictions/Additional Instructions: Take ibuprofen/another NSAID for pain control. Return with worsening symptoms or any other concerns. Follow-up with a primary care physician for which she referred to. Print Language: Luxembourger Disposition Disposition: Home, Self Care
[2024-08-23 13:36] LABS: Bacteria RARE /hpf (None Seen); Internal QC Validated? YES +Cl - CLEAR BKGD; Pregnancy, Urine Negative Negative; Squamous Epithelial Cells - UA 0-5 SEEN /hpf (5-10)
[2024-08-23 13:42] VITALS: BP 128/84
[2024-08-23 15:00] VITALS: BP 129/91; PULSE 70; RESP 16; O2SAT 100
--- NOTE | 2024-08-23 15:03 | US_ITS ---
STUDY: ULTRASOUND OF THE FEMALE PELVIS - COMPLETE REASON FOR EXAM: Female, 29 years old. LLQ pain TECHNIQUE: Endovaginal. Transvaginal US was obtained to better visualized the ovaries. COMPARISON: None. FINDINGS: The uterus is anteverted and is in a midline position. The uterus measures 8.7x4.9 cm. There is a Nabothian cyst of the cervix. The endometrium measures 4 mm in thickness, and is hyperechoic. There is no demonstrated endometrial mass. There is no demonstrated myometrial mass. I.U.D. - The patient does have an I.U.D. is in good position. The right ovary is visualized. The right ovary measures 2.1x1.9 cm. There is no right ovarian cyst or ovarian mass. There is no visualized right adnexal mass or complex lesion. There is normal arterial and normal venous vascularity. The left ovary is visualized. The left ovary measures 2.7x2.3 cm. There is no left ovarian cyst or ovarian mass. There is no visualized left adnexal mass or complex lesion. There is normal arterial and normal venous vascularity. There is no fluid in the cul-de-sac. Unremarkable urinary bladder. US/Transvaginal Non- IMPRESSION: There are no acute findings. Electronically Signed: Keegan Correa MD at 17:13 EDT ,
[2024-08-23 16:54] VITALS: BP 131/92; PULSE 76; RESP 14; O2SAT 100
[2024-08-23 18:00] VITALS: BP 135/91; PULSE 73; RESP 16; O2SAT 100
[2024-08-23 18:42] VITALS: BP 125/91; PULSE 73; RESP 18; TEMP 36.8; O2SAT 98
== END 2024-08-23 18:46 | disposition home or self-care (01) ==
PROVIDERS: Emergency Provider Emergency Medicine; Visit Provider Emergency Medicine
DX: R10.9 Unspecified abdominal pain (principal)
CPT/HCPCS: 96361; 96374; 96375; 74177; 76830; 80053; 81001; 81025; 83690; 85025; 93976; 99283; J7030; Q9967; A4216; J2405